=== PATIENT | male | born 1985 | race African-American/Black ===

== ENCOUNTER 2016-10-18 15:37 | Emergency (ER) | payer SELFPAY ==
[2016-10-18] MEDS ORDERED: Ketorolac Tromethamine 60 MG/2 ML VIAL ONE (15:57)
--- NOTE | 2016-10-18 16:21 | ERRECORD ---
[facility] EMERGENCY RECORD HPI BACK (15:52 BPIC) CHIEF COMPLAINT: Patient presents for evaluation of pain, to the lower back. HISTORIAN: History provided by patient. MECHANISM OF INJURY: No apparent mechanism of injury, Patient does admit repetative motion/lifting that probably execerbated the pain. LOCATION: No radiation back to front, No radiation to the groin, Pain moved from, some radiation to buttock/thigh area. QUALITY: Described as similar to previous episodes. SEVERITY: Maximum severity of symptoms severe, Currently symptoms are moderate. TIME COURSE: Gradual onset of symptoms, There has been no change in the patient's symptoms over time. ASSOCIATED WITH: No associated bladder incontinence, No associated bowel incontinence, No associated dysuria, No associated fever, No associated inability to ambulate, No associated motor weakness, No associated numbness, No associated problems with urination. EXACERBATED BY: Patient's condition exacerbated by extension, Patient's condition exacerbated by flexion, Patient's condition exacerbated by movement, Patient's condition exacerbated by rotation. RELIEVED BY: Patient's condition relieved by nothing. ROS (15:52 BPIC) CONSTITUTIONAL: Negative constitutional review of systems. EYES: Negative eye review of systems. ENT: Negative ears, nose, throat review of systems. CARDIOVASCULAR: Negative cardiovascular review of systems. RESPIRATORY: Negative respiratory review of systems. GI: Negative gastrointestinal review of systems. MUSCULOSKELETAL: Negative musculoskeletal review of systems. SKIN: Negative skin review of systems. PSYCHIATRIC: Negative psychiatric review of systems. NOTES: All other ROS is negative except as listed in HPI. PAST MEDICAL HISTORY MEDICAL HISTORY: No past medical history, Flu vaccine not up to date, Tetanus not up to date, Pneumococcal vaccine not up to date. (15:43 MSPE) MALE SURGICAL HISTORY: Patient has no surgical history. (15:43 MSPE) PSYCHIATRIC HISTORY: No previous psychiatric history. (15:43 MSPE) SOCIAL HISTORY: Patient drinks socially, Patient denies drug use, Patient currently uses tobacco, smokes cigarettes, sts occasional cigarette. (15:43 MSPE) FAMILY HISTORY: Family history is non-contributory to this case. (15:43 MSPE) NOTES: I have reviewed and agree with the PMH/PSxH/FamHx/SocHx &a-1R&a+25V*p+0X*a2938X*c202B*c15G*c2P*p-0X&a-25V&a+1R Name: Shola Vasquez : 1985 M31 MedRec: [id number] AcctNum: [id number] Prepared: SunOct 18, 2016 21:22 by Interface Page 1 of 3 pMD [facility] EMERGENCY RECORD obtained by the nurse. (15:52 BPIC) KNOWN ALLERGIES NKDA (Unconfirmed) No Known Drug Allergies CURRENT MEDICATIONS (15:41 MSPE) None VITAL SIGNS (15:39 MSPE) VITAL SIGNS: BP: 124/77, Pulse: 87, Resp: 18, Temp: 98.8 (Oral), Pain: 8, O2 sat: 98 on Room Air, Time: 10/18/2016 15:39. PHYSICAL EXAM (15:52 BPIC) CONSTITUTIONAL: Vital signs reviewed, Patient afebrile, Pulse normal, Blood pressure normal, Respiratory rate normal, Patient appears non toxic, Patient appears pain free, Patient alert and oriented to person, place and time. HEAD: Head exam included findings of head atraumatic, normocephalic. EYES: Eye exam included findings of eyelids normal to inspection, Pupils equally round and reactive to light, Extraocular muscles intact. ENT: ENT exam normal. NECK: Neck exam included findings of normal range of motion, Trachea midline. RESPIRATORY CHEST: Respiratory exam included findings of no respiratory distress, Breath sounds clear, Chest exam included findings of chest movement symmetrical, Chest expansion equal. CARDIOVASCULAR: Cardiovascular exam included findings of heart rate regular rate and rhythm, Heart sounds normal. BACK: Back exam included findings of normal inspection, Tenderness, Paraspinal musculature. LOWER EXTREMITY: Lower extremity exam included findings of inspection normal, no abrasions, no contusions, Motor strength normal, Sensation intact, no edema, Negative straight leg raise. Some pain with hip flexion on the affected side. NEURO: Neuro exam findings include patient oriented to person, place and time, Speech normal. PSYCHIATRIC: Psychiatric exam included findings of patient oriented to person place and time, Normal affect. MEDICATION ADMINISTRATION SUMMARY Drug Name: ketorolac intramuscular, Dose Ordered: 60 mg, Route: Intramuscular, Status: Given, Time: 16:00 10/18/2016, Detailed record available in Medication Service section. DOCTOR NOTES (15:52 BPIC) TEXT: Patient present with low back pain. DDX includes &a-1R&a+25V*p+0X*c8367P*c202B*c15G*c2P*p-0X&a-25V&a+1R Name: Shola Vasquez : 1985 1 MedRec: [id number] AcctNum: [id number] Prepared: SunOct 18, 2016 21:22 by Interface Page 2 of 3 pMD [facility] EMERGENCY RECORD degenerative disc disease, radiculopathy, lumbago, epidural abcess/hematoma, pyriformis syndrome, sacroilitis. There are no neuro deficits or signs of central nervous system involvement. Will discharge with symptomatic treatment and have close O/P follow up. PROBLEM LIST No recorded problems DIAGNOSIS (15:54 BPIC) FINAL: PRIMARY: LOW BACK PAIN. PRESCRIPTION (15:55 BPIC) Flexeril: TABLET : 5 mg : ORAL : Quantity: 5 Unit: mg Route: ORAL Schedule: every 8 hours PRN Dispense: 30 Unit: tab(s) May substitute. Refills: No Refills . NOTES: No Refills. ibuprofen: TABLET : 800 mg : ORAL : Quantity: 1 Unit: tab(s) Route: ORAL Schedule: every 8 hours PRN Dispense: 30 Unit: tab(s) May substitute. Refills: No Refills POTENTIAL CONTRAINDICATED INTERACTION: ketorolac intramuscular (ketorolac tromethamine) Override Rationale: Reviewed with patient. NOTES: ^s=No Refills No Refills. DISPOSITION PATIENT: Disposition Type: Discharge, Disposition: *Discharge Home, Condition: Good. (15:54 BPIC) Patient left the department. (16:13 MSPE) Banuelos: BPIC=MD Yasir, Omid MSPE=RADHIKA Rodriguez, Janae &a-1R&a+25V*p+0X*p8889X*c202B*c15G*c2P*p-0X&a-25V&a+1R Name: Shola Vasquez : 1985 [facility] [place]: [id number] AcctNum: [id number] Prepared: Estrada Oct 18, 2016 21:22 by Interface Page 3 of 3 pMD MTDD
--- NOTE | 2016-10-18 16:24 | PICIS ---
[facility] EMERGENCY RECORD TRIAGE (15:41 MSPE) TRIAGE NOTES: felt/heard a pop in lower back while moving dirt at work today. (15:41 MSPE) PATIENT: AGE: 31, GENDER: male, : Sun1985, TIME OF GREET: SunOct 18, 2016 15:37, PREFERRED LANGUAGE: Guinean, ETHNICITY: Not or , ECODE BILLING MAP: [facility] ER, SSN: [id number], Zip Code: [address], KG WEIGHT: 79.38, PHONE: , , , PERSON ID: [id number], PCP: none. (15:41 MSPE) NAME: Shola Vasquez (15:48) COMPLAINT: BACK PAIN. (15:41 MSPE) ADMISSION: URGENCY: 4 Non Urgent, ADMISSION SOURCE: Home, TRANSPORT: CAR, BED: ER -03. (15:41 MSPE) SIRS SCORING: Heart Rate 55-109 (0), Temp range 96.8-101.1 (0), respiratory rate 12-24 (0), Mental Status altered: no (0), Total SIRS Score 0. (15:43 MSPE) TREATMENTS IN PROGRESS: Treatments given Prehospital: none. (15:43 MSPE) PROVIDERS: TRIAGE NURSE: Janae Rodriguez RN. (15:41 MSPE) VITAL SIGNS: BP 124/77, Pulse 87, Resp 18, Temp 98.8, (Oral), Pain 8, O2 Sat 98, on Room Air, Time 10/18/2016 15:39. (15:39 MSPE) PREVIOUS VISIT ALLERGIES: NKDA. (15:41 MSPE) NKDA. (15:43 MSPE) KNOWN ALLERGIES NKDA (Unconfirmed) No Known Drug Allergies CURRENT MEDICATIONS (15:41 MSPE) None VITAL SIGNS (15:39 MSPE) VITAL SIGNS: BP: 124/77, Pulse: 87, Resp: 18, Temp: 98.8 (Oral), Pain: 8, O2 sat: 98 on Room Air, Time: 10/18/2016 15:39. NURSING ASSESSMENT: BACK (15:44 MSPE) CONSTITUTIONAL: Patient arrives ambulatory, Gait steady, History obtained from patient, Patient appears comfortable, Patient cooperative, Patient alert, Oriented to person, place and time, Skin warm, Skin dry, Skin normal in color. PAIN: aching pain, sharp pain, to the lower back, left middle and left lower back, Onset of pain this a.m. at work. BACK: Back assessment findings include tenderness to, the left lower back, Notes: denies numbness or tingling in arms, legs, hands, or feet. NOTES: Notes: Reports hearing and feeling a pop in lower back while moving dirt at work. NURSING PROCEDURE: DISCHARGE NOTE (16:11 MSPE) &a-1R&a+25V*p+0X*b7663H*c202B*c15G*c2P*p-0X&a-25V&a+1R Name: Shola Vasquez : 1985 M31 MedRec: [id number] AcctNum: [id number] Prepared: SunOct 18, 2016 21:29 by Interface Page 1 of 5 pMD [facility] EMERGENCY RECORD DISCHARGE: Patient discharged to home, ambulating without assistance, Summary of Care printed/ provided, Discharge instructions given to patient, Simple or moderate discharge teaching performed, Prescriptions given and instructions on side effects given, Above person(s) verbalized understanding of discharge instructions and follow-up care, Patient treated and evaluated by physician. BELONGINGS: Belongings remain with patient. NOTES: Notes: No adverse reaction noted to med. MEDICATION ADMINISTRATION SUMMARY Drug Name: ketorolac intramuscular, Dose Ordered: 60 mg, Route: Intramuscular, Status: Given, Time: 16:00 10/18/2016, Detailed record available in Medication Service section. MEDICATION SERVICE (16:00 [facility]) ketorolac intramuscular: Order: ketorolac intramuscular (ketorolac tromethamine) - Dose: 60 mg : Intramuscular Ordered by: Omid Cooley MD Entered by: Omid Cooley MD SunOct 18, 2016 15:52 , Acknowledged by: Janae Rodriguez RN SunOct 18, 2016 15:58 Documented as given by: Janae Rodriguez RN SunOct 18, 2016 16:00 Patient, Medication, Dose, Route and Time verified prior to administration. IM medication, Amount given: 60mg, Amount wasted: 0, Medication administered to left thigh, Patient appears Awake and alert- acceptable, Correct patient, time, route, dose and medication confirmed prior to administration, Patient advised of actions and side-effects prior to administration, Allergies confirmed and medications reviewed prior to administration, Patient in position of comfort, Side rails up, Cart in lowest position. HPI BACK (15:52 BPIC) CHIEF COMPLAINT: Patient presents for evaluation of pain, to the lower back. HISTORIAN: History provided by patient. MECHANISM OF INJURY: No apparent mechanism of injury, Patient does admit repetative motion/lifting that probably execerbated the pain. LOCATION: No radiation back to front, No radiation to the groin, Pain moved from, some radiation to buttock/thigh area. QUALITY: Described as similar to previous episodes. SEVERITY: Maximum severity of symptoms severe, Currently symptoms are moderate. TIME COURSE: Gradual onset of symptoms, There has been no change in the patient's symptoms over time. ASSOCIATED WITH: No associated bladder incontinence, No associated bowel incontinence, No associated dysuria, No associated fever, No associated inability to ambulate, No associated motor weakness, No associated numbness, No associated problems with urination. EXACERBATED BY: Patient's condition exacerbated by &a-1R&a+25V*p+0X*c8397Q*c202B*c15G*c2P*p-0X&a-25V&a+1R Name: Shola Vasquez : 1985 M31 MedRec: [id number] AcctNum: [id number] Prepared: SunOct 18, 2016 21:29 by Interface Page 2 of 5 pMD [facility] EMERGENCY RECORD extension, Patient's condition exacerbated by flexion, Patient's condition exacerbated by movement, Patient's condition exacerbated by rotation. RELIEVED BY: Patient's condition relieved by nothing. ROS (15:52 BPIC) CONSTITUTIONAL: Negative constitutional review of systems. EYES: Negative eye review of systems. ENT: Negative ears, nose, throat review of systems. CARDIOVASCULAR: Negative cardiovascular review of systems. RESPIRATORY: Negative respiratory review of systems. GI: Negative gastrointestinal review of systems. MUSCULOSKELETAL: Negative musculoskeletal review of systems. SKIN: Negative skin review of systems. PSYCHIATRIC: Negative psychiatric review of systems. NOTES: All other ROS is negative except as listed in HPI. PAST MEDICAL HISTORY MEDICAL HISTORY: No past medical history, Flu vaccine not up to date, Tetanus not up to date, Pneumococcal vaccine not up to date. (15:43 MSPE) MALE SURGICAL HISTORY: Patient has no surgical history. (15:43 MSPE) PSYCHIATRIC HISTORY: No previous psychiatric history. (15:43 MSPE) SOCIAL HISTORY: Patient drinks socially, Patient denies drug use, Patient currently uses tobacco, smokes cigarettes, sts occasional cigarette. (15:43 MSPE) FAMILY HISTORY: Family history is non-contributory to this case. (15:43 MSPE) NOTES: I have reviewed and agree with the PMH/PSxH/FamHx/SocHx obtained by the nurse. (15:52 BPIC) PHYSICAL EXAM (15:52 BPIC) CONSTITUTIONAL: Vital signs reviewed, Patient afebrile, Pulse normal, Blood pressure normal, Respiratory rate normal, Patient appears non toxic, Patient appears pain free, Patient alert and oriented to person, place and time. HEAD: Head exam included findings of head atraumatic, normocephalic. EYES: Eye exam included findings of eyelids normal to inspection, Pupils equally round and reactive to light, Extraocular muscles intact. ENT: ENT exam normal. NECK: Neck exam included findings of normal range of motion, Trachea midline. RESPIRATORY CHEST: Respiratory exam included findings of no respiratory distress, Breath sounds clear, Chest exam included findings of chest movement symmetrical, Chest expansion equal. &a-1R&a+25V*p+0X*j7981N*c202B*c15G*c2P*p-0X&a-25V&a+1R Name: Shola Vasquez Jeanie : 1985 M31 MedRec: [id number] AcctNum: [id number] Prepared: SunOct 18, 2016 21:29 by Interface Page 3 of 5 D [facility] EMERGENCY RECORD CARDIOVASCULAR: Cardiovascular exam included findings of heart rate regular rate and rhythm, Heart sounds normal. BACK: Back exam included findings of normal inspection, Tenderness, Paraspinal musculature. LOWER EXTREMITY: Lower extremity exam included findings of inspection normal, no abrasions, no contusions, Motor strength normal, Sensation intact, no edema, Negative straight leg raise. Some pain with hip flexion on the affected side. NEURO: Neuro exam findings include patient oriented to person, place and time, Speech normal. PSYCHIATRIC: Psychiatric exam included findings of patient oriented to person place and time, Normal affect. EVENTS TRANSFER: Triage to Emergency Emergency Room -03. (SunOct 18, 2016 15:41 MSPE) Removed from Emergency Emergency Room -03. (16:13 MSPE) DOCTOR NOTES (15:52 BPIC) TEXT: Patient present with low back pain. DDX includes degenerative disc disease, radiculopathy, lumbago, epidural abcess/hematoma, pyriformis syndrome, sacroilitis. There are no neuro deficits or signs of central nervous system involvement. Will discharge with symptomatic treatment and have close O/P follow up. PROBLEM LIST No recorded problems DIAGNOSIS (15:54 BPIC) FINAL: PRIMARY: LOW BACK PAIN. DISPOSITION PATIENT: Disposition Type: Discharge, Disposition: *Discharge Home, Condition: Good. (15:54 BPIC) Patient left the department. (16:13 MSPE) INSTRUCTION (15:56 BPIC) DISCHARGE: LOW BACK PAIN GENERAL. FOLLOWUP: Occupational Health, Clinic, Clinic, [address] [facility] [place] [address], . SPECIAL: Thank you for [facility] for your care today! Please follow up with your primary doctor in the next 2-3 days. Return to the emergency department with any other worsening or emergent symptoms. God bless you!. PRESCRIPTION (15:55 BPIC) Flexeril: TABLET : 5 mg : ORAL : Quantity: 5 Unit: mg Route: ORAL Schedule: every 8 hours PRN Dispense: 30 Unit: &a-1R&a+25V*p+0X*j3028I*c202B*c15G*c2P*p-0X&a-25V&a+1R Name: Shola Vasquez : 1985 M31 MedRec: [id number] AcctNum: [id number] Prepared: SunOct 18, 2016 21:29 by Interface Page 4 of 5 pMD [facility] EMERGENCY RECORD tab(s) May substitute. Refills: No Refills . NOTES: No Refills. ibuprofen: TABLET : 800 mg : ORAL : Quantity: 1 Unit: tab(s) Route: ORAL Schedule: every 8 hours PRN Dispense: 30 Unit: tab(s) May substitute. Refills: No Refills POTENTIAL CONTRAINDICATED INTERACTION: ketorolac intramuscular (ketorolac tromethamine) Override Rationale: Reviewed with patient. NOTES: ^s=No Refills No Refills. IMAGING (16:15 MSPE) DIS: Image captured from scanner. SUP: Image captured from scanner. ADMIN (21:17 BPIC) DIGITAL SIGNATURE: MD Cooley Bryan. Banuelos: BPIC=MD Cooley Bryan MSPE=RADHIKA Rodriguez, Janae &a-1R&a+25V*p+0X*q9413P*c202B*c15G*c2P*p-0X&a-25V&a+1R Name: Shola Vasquez : 1985 M31 MedRec: [id number] AcctNum: [id number] Prepared: SunOct 18, 2016 21:29 by Interface Page 5 of 5 pMD MTDD
== END 2016-10-18 16:11 | disposition home or self-care (01) ==
LOC: NAV ERS 15:37
DX: M54.5 Low back pain (principal); Z72.0 Tobacco use
CPT/HCPCS: 96372; J1885

== ENCOUNTER 2017-06-17 15:38 | Emergency (ER) | payer BC, SELFPAY ==
[2017-06-17] MEDS ORDERED: HYDROcodone/Acetaminophen 7.5/325 mg Tablet ONE (17:15)
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
== END 2017-06-17 17:17 | disposition home or self-care (01) ==
LOC: NAV ERS 15:38
DX: S02.40DA Maxillary fracture, left side, initial encounter for closed fracture (principal); S02.32XA Fracture of orbital floor, left side, initial encounter for closed fracture; S02.40FA Zygomatic fracture, left side, initial encounter for closed fracture; S00.212A Abrasion of left eyelid and periocular area, initial encounter; F17.210 Nicotine dependence, cigarettes, uncomplicated; Y04.0XXA Assault by unarmed brawl or fight, initial encounter
CPT/HCPCS: 70450; 70486

== ENCOUNTER 2017-06-27 23:36 | Emergency (ER) | payer BC | END 2017-06-27 23:56 | disposition home or self-care (01) | LOC: NAV ERS 23:36 | DX: M96.830 Postprocedural hemorrhage of a musculoskeletal structure following a musculoskeletal system procedure (principal); F17.210 Nicotine dependence, cigarettes, uncomplicated; Z79.899 Other long term (current) drug therapy | CPT/HCPCS: 99283 ==

== ENCOUNTER 2018-05-06 19:23 | Emergency (ER) | payer BC, SELFPAY ==
[2018-05-06 20:51] LABS: CKMB 0.6 ng/mL (0-6.6); Troponin I Less than 0.010 ng/mL (< 0.028)
--- NOTE | 2018-05-06 20:59 | RAD ---
PA AND LATERAL VIEWS OF THE CHEST: 05/06/18 HISTORY: Chest pain. FINDINGS: Comparison is made with exam from 07/22/15. The cardiomediastinum is normal. The lungs are expanded and clear. The bony thorax is unremarkable. IMPRESSION: Normal exam. POS: [facility]
[2018-05-06 21:14] LABS: ALT (SGPT) 16 U/L (8-55); AST (SGOT) 16 U/L (5-34); Albumin 4.5 g/dL (3.5-5.0); Alkaline Phosphatase 66 U/L (40-150); Anion Gap 14 mmol/L (10-20); BUN (Urea Nitrogen) 17 mg/dL (8.9-20.6); Bilirubin, Total 0.3 mg/dL (0.2-1.2); Calc. Creatinine Clearance 0 mL/min (70-130); Calcium 9.9 mg/dL (7.8-10.44); Carbon Dioxide 25 mmol/L (22-29); Chloride 102 mmol/L (98-107); Estimated GFR-MDRD 87; Globulin 3.3 g/dL (2.4-3.5); Glucose 102 mg/dL (70-105); Lipase 9 U/L (8-78); Potassium 3.8 mmol/L (3.5-5.1); Protein, Total 7.8 g/dL (6.0-8.3); Sodium 137 mmol/L (136-145)
[2018-05-06 21:14] LABS: Eosinophils 1 % (0-10); Hemoglobin 14.5 g/dL (14.0-18.0); Lymphocytes 21 % (21-51); MDiff Complete? YES; Mean Corpuscular HGB CONC 31.9 g/dL (32.0-36.0); Mean Corpuscular Hemoglobin 28.1 pg (27.0-31.0); Mean Corpuscular Volume 87.9 fL (78.0-98.0); Mean Platelet Volume 6.9 fL (7.4-10.4); Monocytes 6 % (0-10); Neutrophil 72 % (42-75); PLT Morphology Comment Appears Adequate; Platelet Count 268 thou/uL (130-400); RBC Distribution Width 11.4 % (11.5-14.5); RBC Morphology Normal; Red Blood Cell (RBC) Count 5.15 mill/uL (4.70-6.10); White Blood Cell (WBC) Count 8.6 thou/uL (4.8-10.8)
== END 2018-05-06 21:53 | disposition home or self-care (01) ==
LOC: NAV ERS 19:23
DX: R07.89 Other chest pain (principal); Z87.891 Personal history of nicotine dependence
CPT/HCPCS: 36415; 71046; 80053; 82553; 83690; 84484; 85025; 93005; 94760

== ENCOUNTER 2018-10-10 22:39 | Emergency (ER) | payer SELFPAY ==
[2018-10-10] MEDS ORDERED: Ketorolac Tromethamine 60 MG/2 ML VIAL ONE (22:56)
== END 2018-10-10 23:20 | disposition home or self-care (01) ==
LOC: NAV ERS 22:39
DX: M54.5 Low back pain (principal)
CPT/HCPCS: 96372; J1885

== ENCOUNTER 2019-02-21 16:29 | Emergency (ER) | payer SELFPAY ==
--- NOTE | 2019-02-21 16:58 | RAD ---
EXAM: Left index finger: 3 views INDICATIONS: Injury COMPARISON: None. FINDINGS: There is evidence of a nondisplaced fracture involving the tuft of the distal phalanx. No o ther fracture. No other osseous abnormality identified.
== END 2019-02-21 17:45 | disposition home or self-care (01) ==
LOC: NAV ERS 16:29
DX: S62.661A Nondisplaced fracture of distal phalanx of left index finger, initial encounter for closed fracture (principal); W22.8XXA Striking against or struck by other objects, initial encounter

== ENCOUNTER 2023-06-03 22:40 | Emergency (ER) | payer BC ==
[2023-06-03] MEDS ORDERED: Ibuprofen 200 MG TAB ONE (23:29)
[2023-06-03 23:37] LABS: Bilirubin Small (Negative); Blood, Urine Negative (Negative); Clarity Clear (Clear); Glucose, Urine (Dipstick) Negative (Negative); Ketone, Urine Negative (Negative); Leukocyte Negative (Negative); Nitrite Negative (Negative); Protein, Urine (Dipstick) 30 mg/dL (Neg-Trace); Specific Gravity, Urine 1.038 (1.002-1.036); pH, Urine 5.5 (5.0-9.0)
[2023-06-03 23:39] LABS: Bacteria/HPF None Seen HPF (None Seen); CAUTI Indications for Culture Pelvic or flank pain; RBC/HPF None Seen HPF (0-3); Squamous Epithelial None Seen HPF (0-3); WBC/HPF None Seen HPF (0-3)
[2023-06-03 23:40] LABS: Urine Culture Reflex No No
[2023-06-04 00:03] LABS: #Eosinphils 0.1 thou/uL (0.0-0.7)
[2023-06-04 00:04] LABS: #Basophils 0.1 thou/uL (0.0-0.2); #Monocytes 0.6 thou/uL (0.11-0.59); #Neutrophils 4.3 thou/uL (1.40-6.50); %Basophils 1.2 % (0.0-1.0); %Eosinophils 1.5 % (0.0-10.0); %Lymphocytes 28.2 % (21.0-51.0); %Neutrophils 61.1 % (42.0-75.0); Hematocrit 46.2 % (42.0-52.0); Hemoglobin 14.8 g/dL (14.0-18.0); Mean Corpuscular Hemoglobin 28.6 pg (27.0-31.0); Mean Corpuscular Volume 89.4 fl (78.0-98.0); Mean Platelet Volume 7.4 fL (7.4-10.4); Platelet Count 280 10x3/uL (130-400); RBC Distribution Width 12.3 % (11.5-14.5); Red Blood Cell (RBC) Count 5.17 mill/uL (4.70-6.10)
[2023-06-04 00:48] LABS: ALT (SGPT) 24 U/L (8-55); AST (SGOT) 20 U/L (5-34); Albumin 4.6 g/dL (3.5-5.0); Alkaline Phosphatase 80 U/L (40-110); Anion Gap 18 mmol/L (10-20); BUN (Urea Nitrogen) 8 mg/dL (8.9-20.6); Bilirubin, Total 0.3 mg/dL (0.2-1.2); CK (CPK) 183 U/L (30-200); Calc. Creatinine Clearance 0 mL/min (70-130); Calcium 9.9 mg/dL (7.8-10.44); Carbon Dioxide 22 mmol/L (22-29); Chloride 103 mmol/L (98-107); Estimated GFR 80; Glucose 113 mg/dL (70-105); Potassium 4.2 mmol/L (3.5-5.1); Protein, Total 8.6 g/dL (6.0-8.3); Sodium 139 mmol/L (136-145)
== END 2023-06-04 01:18 | disposition home or self-care (01) ==
LOC: NAV ERS 22:40
DX: S39.012A Strain of muscle, fascia and tendon of lower back, initial encounter (principal); E86.0 Dehydration; X58.XXXA Exposure to other specified factors, initial encounter
CPT/HCPCS: 80053; 81001; 82550; 85025; 96360

== ENCOUNTER 2025-08-13 15:21 | Emergency (ER) | payer BC, OTHER ==
[2025-08-13] MEDS ORDERED: Ibuprofen 200 MG TAB ONE (15:54)
[2025-08-13 16:17] LABS: #Basophils 0.1 thou/uL (0.0-0.2); #Eosinophils 0.0 thou/uL (0.0-0.7); #Lymphocytes 1.6 thou/uL (1.20-3.40); #Monocytes 0.8 thou/uL (0.11-0.59); #Neutrophils 6.8 thou/uL (1.40-6.50); %Basophils 1.1 % (0.0-1.0); %Eosinophils 0.4 % (0.0-10.0); %Lymphocytes 16.7 % (21.0-51.0); %Monocytes 8.1 % (0.0-10.0); %Neutrophils 73.7 % (42.0-75.0); Hematocrit 42.3 % (42.0-52.0); Hemoglobin 14.1 g/dL (14.0-18.0); Mean Corpuscular Hemoglobin 29.7 pg (27.0-31.0); Mean Corpuscular Volume 89.0 fl (78.0-98.0); Platelet Count 289 10x3/uL (130-400); Red Blood Cell (RBC) Count 4.75 mill/uL (4.70-6.10); White Blood Cell (WBC) Count 9.3 10x3/uL (4.8-10.8)
[2025-08-13 16:29] LABS: Glucose, Urine (Dipstick) Negative (Negative); Leukocyte Negative (Negative); Protein, Urine (Dipstick) 30 mg/dL (Neg-Trace); Specific Gravity, Urine 1.025 (1.005-1.030)
[2025-08-13 16:32] LABS: ALT (SGPT) 18 U/L (Less than 45); AST (SGOT) 20 U/L (11-34); Albumin 4.3 g/dL (3.1-4.5); Alkaline Phosphatase 64 U/L (40-110); Anion Gap 15 mmol/L (10-20); BUN (Urea Nitrogen) 10 mg/dL (8.9-20.6); Bilirubin, Total 0.5 mg/dL (0.3-1.2); Calc. Creatinine Clearance 0 mL/min (70-130); Calcium 9.0 mg/dL (7.8-10.44); Carbon Dioxide 23 mmol/L (22-29); Chloride 103 mmol/L (98-107); Globulin 3.7 g/dL (2.4-3.5); Glucose 126 mg/dL (70-105); Lipase 8 U/L (8-78); Potassium 3.7 mmol/L (3.5-5.1); Sodium 137 mmol/L (136-145)
[2025-08-13 17:06] LABS: Bacteria/HPF 1+ HPF (None Seen); CAUTI Indications for Culture Pelvic or flank pain; Mucous/LPF 2+ LPF (<2+); RBC/HPF 0-3 HPF (0-3); WBC/HPF 0-3 HPF (0-3)
[2025-08-13 17:07] LABS: Urine Culture Reflex No No
== END 2025-08-13 16:51 | disposition home or self-care (01) ==
LOC: NAV ERS 15:21
DX: S29.011A Strain of muscle and tendon of front wall of thorax, initial encounter (principal); X58.XXXA Exposure to other specified factors, initial encounter
CPT/HCPCS: 71046; 80053; 81001; 83690; 85025